=== PATIENT | female | born 1940 | race Caucasian/White ===

== ENCOUNTER 2024-09-27 09:00 | Outpatient (CLI) | payer OTHER, SELFPAY ==
--- NOTE | ~2024-09-27 | US_ITS ---
EXAMINATION: US arterial ankle brachial ind DATE: 09/27/2024 10:27 INDICATION: Atherosclerosis of [place] arteries. TECHNIQUE: Segmental pressures and plethysmographic and Doppler waveforms of the brachial and lower e xtremity arteries were obtained. COMPARISON: None. FINDINGS: Right and left brachial artery pressures of 138 mm Hg and 128 mm Hg, respectively, are concordant (no rmal difference <= 30 mmHg). The right ankle-brachial index (ARIANE) is 1.15 (normal >= 0.9-1.0). The right great toe-brachial index (TBI) is 0.70 (normal >= 0.65). Arterial Doppler waveforms are monophasic in dorsalis pedis and of po or amplitude in posterior tibial artery. The left ARIANE could not be measured due to inability to cuff occlude the arteries. The left TBI is 0.4 0. Arterial Doppler waveforms are monophasic at the ankle. IMPRESSION: 1. Decreased left TBI and nondiagnostic left ARIANE, consistent with left-sided arterial occlusive disea se. 2. No significant right-sided arterial occlusive disease. Reviewed, dictated and finalized at location A. [employer] IMPRESSION: 1. Decreased left TBI and nondiagnostic left ARIANE, consistent with left-sided ar terial occlusive disease. 2. No significant right-sided arterial occlusive disease.
== END 2024-09-27 09:01 | disposition home or self-care (01) ==
PROVIDERS: PCP Internal Medicine
DX: I70.211 Atherosclerosis of native arteries of extremities with intermittent claudication, right leg (principal)
CPT/HCPCS: 93922

== ENCOUNTER 2025-01-21 10:50 | Outpatient (CLI) | payer OTHER, SELFPAY ==
--- NOTE | ~2025-01-21 | US_ITS ---
EXAMINATION: US carotid duplex BI DATE: 01/21/2025 11:47 INDICATION: Carotid artery stenosis post prior right carotid endarterectomy TECHNIQUE: Grayscale, color Doppler, and pulsed Doppler images of the cervical carotid arteries were obtained. The degree of vessel stenosis is placed in one of the following categories: normal, <50%, 5 0-69%, >=70% but less than near-occlusion, near-occlusion, or total occlusion. Note that percent sten osis relative to normal distal artery lumen diameter is indirectly measured from velocity measurement s as described by Yandel, et al. Radiology 2003; 229:340-346. COMPARISON: None. FINDINGS: RIGHT: The right common carotid artery (CCA) peak systolic velocity (PSV) is 54 cm/s. The right internal car otid artery (ICA) PSV is 75 cm/s. The right ICA end-diastolic velocity (EDV) is 18 cm/s. The right IC A/CCA PSV ratio is 1.4. Grayscale and color Doppler images yield an estimate of <50% diameter reducti on from plaque in the ICA. The external carotid artery (ECA) PSV is 117 cm/s. There is antegrade flow in the right vertebral artery. LEFT: The left CCA PSV is 42 cm/s. The left ICA PSV is 88 cm/s. The left ICA EDV is 15 cm/s. The left ICA/C CA PSV ratio is 2.1. Grayscale and color Doppler images yield an estimate of <50% diameter reduction from plaque in the ICA. The ECA PSV is 157 cm/s. There is antegrade flow in the left vertebral artery . IMPRESSION: 1. <50% stenosis in the right internal carotid artery. 2. <50% stenosis in the left internal carotid artery. 3. Cardiac arrhythmia is present. Correlate with EKG. Reviewed, dictated and finalized at location A.
--- OUTSIDE RECORDS SUMMARY | 2025-01-21 12:23 | XMS_ITS | Clinical Summary ---
Author Organization [facility] Address [address] [place] [address] Care Team Providers Care Marketing Traffic Coordinator Name Role Phone FinaBeverley oh Crystal HAIR Primary Care Provider [phone] Allergies Active Allergy Reactions Criticality Noted Date Comments Adhesive Rash Medium 12/28/2024 Adhesive Tape-Silicones Rash Medium 12/18/2024 Gabapentin Other (See comments) 12/18/2024 Latex Other (See comments) Reaction: SKIN IRRATATION, Lovastatin Muscle pain Medium 12/28/2024 Pitavastatin Muscle pain Medium 12/28/2024 Propoxyphene Rash,Hives,Urticaria Medium 11/29/2007 Reaction: RASH Deskiku-Fyn-Jby Reductase Inhibitors Muscle pain,Other (See comments) Medium 11/29/2007 Medications calcium carbonate-dot min D3 1,500 mg (600 mg elemental)-800 unit tablet,chewabl e Take 1 tablet by mouth daily Active carvediloL (COREG) 3.125 mg tablet Take 1 tablet (3.125 mg total) by mouth 2 (two) times a day with meals Active folic acid (FOLVITE) 400 mcg tablet Take 1 tablet (400 mcg total) by mouth daily Active warfarin (COUMADIN) 4 mg tablet Take 1 tablet (4 mg total) by mouth 4 (four) times a week Mon, , Tue, Active furosemide (LASIX) 40 mg tablet Take 1 tablet (40 mg total) by mouth daily Active pregabalin (LYRICA) 150 mg capsule Take 1 capsule (150 mg total) by mouth 2 (two) times a day Active levothyroxine (SYNTHROID) 100 mcg tablet Take 1 tablet (100 mcg total) by mouth daily before breakfast Active oxyBUTYnin XL (DITROPAN-XL) 10 mg 24 hr tablet Take 1 tablet (10 mg total) by mouth daily Active Trelegy Ellipta 100-62.5-25 mcg inhaler INHALE 1 PUFF EVERY DAY AT THE SAME TIME EACH DAY 07/19/20 24 Active eoecbhkq79-pdw b-Yumttdqr-xlb al 27 mg iron-1.13 mg-581.92 mg capsule Take 1 tablet by mouth daily Active warfarin (COUMADIN) 5 mg tablet Take 1 tablet (5 mg total) by mouth 3 (three) times a week Tuesday, Tuesday, tuesday Active magnesium glycinate 100 mg tablet Take 300 mg by mouth 2 (two) times a day 12/04/19 25 Active omeprazole (PriLOSEC) 40 mg capsule Take 1 capsule (40 mg total) by mouth daily 02/23/20 24 Active evolocumab (Repatha SureClick) 140 mg/mL pen injector Inject 1 mL (140 mg total) under the skin every 14 (fourteen) days 6 mL 3 12/28/19 25 Active aspirin 81 mg enteric coated tablet Take 1 tablet (81 mg total) by mouth daily 90 tablet 3 12/30/19 25 026 Active evolocumab (Repatha SureClick) 140 mg/mL pen injector INJECT 140 MG SUBCUTANEOUSLY EVERY 2 WEEKS 09/27/20 22 025 Discontin ued(Reord er) Active Problems Problem Noted Date Diagnosed Date Atherosclerosis of nez perce ar teries of extremities with intermittent claudication, bilateral legs 12/10/2024 Severe obesity 07/24/2024 Actinic keratosis 07/28/2017 Baldness 07/28/2017 Encounters Date Type Department Care Team Description 01/08/2025 Documentation [facility] Medical [facility] Cardiology [address] [place] [address] Dominique Angela MA 12/31/2024 Telephone [facility] Medical [facility] Cardiology [address] [place] [address] Howard Gastelum MD 12/28/2024 10:00 AM CDT - 12/28/2024 12:00 PM CDT Surgery [facility] Cardiac Catheterization Lab [address] [place] [address] Howard Gastelum MD DRYING SUPERVISOR ATHERECTOMY LITHOTRIPSY ILIAC-FEM/POP ARTERY [id number] 12/28/2024 7:23 AM CDT - 12/28/2024 4:49 PM CDT Hospital Encounter [facility] Cardiac Catheterization Lab [address] [place] [address] Howard Gastelum MD Atherosclerosis of nez perce arteries of extremities with intermittent claudication, bilateral legs Discharge Disposition: Discharge to home or self care 12/28/2024 Orders Only [facility] Cardiology [address] [facility] [address] [place] [phone] Howard Gastelum MD Atherosclerosis of nez perce arteries of extremities with rest pain, left leg (HCC) (Primary Dx) 12/27/2024 Documentation [facility] Cardiology [address] [place] [address] [address] [place] [phone] Dominique Angela MA 12/26/2024 Anticoagulation Visit [address] [place] [phone] Beverley Castillo RN 12/19/[address] [place] [phone] Howard Gastelum MD 12/10/2024 10:[address] ADMINISTRATOR Office Visit [place] [address] [place] [phone] Radha Tolbert NP PAD (peripheral artery disease) 12/10/[address] [place] [phone] Howard Gastelum MD peripheral angiogram from Last 3 Months Surgical History Surgery Date Site/Laterality Comments CORONARY ARTERY BYPASS GRAFT HYSTERECTOMY TONSILLECTOMY CHOLECYSTECTOMY CARDIAC CATHETERIZATION 12/28/2024 Bilateral Procedure: ANGIOGRAPHY - BILATERAL EXTREMITY S&I [id number]; Surgeon: Howard Gastelum MD; Location: CARDIAC UTILITY TRACTOR OPERATOR; Service: Cardiovascular; Laterality: Bilateral; Medical devices from this surgery are in the Medical Devices section. CARDIAC CATHETERIZATION 12/28/2024 N/A Procedure: DRYING SUPERVISOR ATHERECTOMY LITHOTRIPSY ILIAC-FEM/POP ARTERY [id number]; Surgeon: Howard Gastelum MD; Location: CARDIAC UTILITY TRACTOR OPERATOR; Service: Cardiovascular; Laterality: N/A; Medical devices from this surgery are in the Medical Devices section. CARDIAC CATHETERIZATION 12/28/2024 N/A Procedure: ULTRASOUND GUIDANCE FOR VASCULAR ACCESS S&I [id number]; Surgeon: Howard Gastelum MD; Location: CARDIAC UTILITY TRACTOR OPERATOR; Service: Cardiovascular; Laterality: N/A; Medical devices from this surgery are in the Medical Devices section. Medical History Medical History Date Comments Atrial fibrillation (HCC) Shortness of breath Edema Thyroid disease Hypertension Diabetes mellitus (HCC) Coronary artery disease Cancer (HCC) Atherosclerosis of nez perce ar teries of extremities with intermittent claudication, bilateral legs Hypothyroidism Family History Medical History Relation Name Comments No Known Problems Father Heart disease Mother Relation Name Status Comments Father Mother Social History Tobacco Use Types Packs/Day Years Used Date Smoking Tobacco: Never Smokeless Tobacco: Never Tobacco Cessation:Counseling Given: Not Answered AUDIT-C Answer Date Recorded Q1: How often do you have a drink containing alcohol? Never 12/28/2024 Q2: How many drinks containi ng alcohol do you have on a typical day when you are drinking? Patient does not drink Q3: How often do you have si x or more drinks on one occasion? Never 12/28/2024 Personal Safety Answer Date Recorded Have you ever been in or are you currently in a harmful physical or emotional relationship or is someone making you feel afraid or unsafe? Denies 12/28/2024 Comments No Sex and Gender Information Value Date Recorded Sex Assigned at Not on file Legal Sex Female 2:[address]MINISTRATOR Gender Identity Not on file Sexual Orientation Not on file Obstetrics History Last Filed Vital Signs Vital Sign Reading Time Taken Comments Blood Pressure 106/55 12/28/2024 4:20 PM CDT Pulse 65 12/28/2024 4:30 PM CDT Temperature 36.8 C (98.2 F) 12/28/2024 7:34 AM CDT Respiratory Rate 17 12/28/2024 7:34 AM CDT Oxygen Saturation 96% 12/28/2024 4:30 PM CDT Inhaled Oxygen Concentration - - Weight 102.5 kg (226 lb) 12/28/2024 7:34 AM CDT Height 167.6 cm (5' 6 ) 12/28/2024 7:34 AM CDT Body Mass Index 36.48 12/28/2024 7:34 AM CDT Plan of Treatment Health Maintenance Due Date Last Done Comments Depression Screening 1940 DTaP/Tdap/Td Vaccine (1 - Tdap) 1949 Hepatitis B Screening 1956 Zoster Vaccine (1 of 2) 1988 Well Visit 65+ 2003 Covid-19 Vaccine (6 - 2023-2 5 season) 2024 09/12/2023, 07/13/2022, 09/29/2021, Additional history exists Fall Risk Assessment 12/28/2025 12/28/2024 Pneumococcal vaccine 65+ Completed 06/07/2023 Influenza Vaccine Completed 07/16/2024, , 07/08/2022, Additional history exists Medical Devices Implanted Type Area Front End Assistant Device Identifier Shelf Expiration Date Model / Serial / Lot [employer] System Closure Repair Femoral Artery Suture Mediated Perclose Prostyle 08338-99 - [id number] Implanted:Qty: 1 on 12/28/2024 by Howard Gastelum MD at [facility] Other - see comments [employer] 11/09/2026 [id number] / / [id number] Description:SMCD Procedures Procedure Name Priority Date/Time Associated Diagnosis Comments POCT GLUCOSE DEVICE Routine 12/28/2024 1 2:43 PM CDT VASCULAR ACCESS US GUIDANCE Routine 12/28/2024 12:08 PM CDT Atherosclerosis of nez perce arteries of extremities with intermittent claudication, bilateral legs DRYING SUPERVISOR ATHERECTOMY LITHOTRIPSY ILIAC-FEM/POP ARTERY [id number] Routine 12/28/2024 12:08 PM CDT Atherosclerosis of nez perce arteries of extremities with intermittent claudication, bilateral legs PERIPHERAL RUN OFF CATH Routine 12/28/2024 12:08 PM CDT Atherosclerosis of nez perce arteries of extremities with intermittent claudication, bilateral legs POCT ACTIVATED CLOTTING TIME, HIGH RANGE Routine 12/28/2024 12:03 PM CDT POCT GLUCOSE DEVICE Routine 12/28/2024 1 1:35 AM CDT POCT ACTIVATED CLOTTING TIME, HIGH RANGE Routine 12/28/2024 11:32 AM CDT PROTIME-INR STAT 12/28/2024 10:49 AM CDT POCT ACTIVATED CLOTTING TIME, HIGH RANGE Routine 12/28/2024 10:43 AM CDT MODERATE SEDATION SAME MD DEL RIO ADDL 15 MIN [id number] 12/28/2024 9:27 AM CDT Atherosclerosis of nez perce arteries of extremities with intermittent claudication, bilateral legs MODERATE SEDATION 12/28/2024 9:2 7 AM CDT Atherosclerosis of nez perce arteries of extremities with intermittent claudication, bilateral legs INTRAVASCULAR ULTRASOUND - NON-CORONARY - 1ST VESSEL 12/28/2024 9:27 AM CDT Atherosclerosis of nez perce arteries of extremities with intermittent claudication, bilateral legs ANGIOGRAPHY SELECTIVE - EACH ADDITIONAL VESSEL 12/28/2024 9:27 AM CDT Atherosclerosis of nez perce arteries of extremities with intermittent claudication, bilateral legs EGFR Routine 12/28/2024 7:40 AM CDT DIFFERENTIAL AUTO Routine 12/28/2024 7:4 0 AM CDT COMPREHENSIVE METABOLIC PANEL Routine 12/28/2024 7:40 AM CDT CBC WITH AUTO DIFFERENTIAL Routine 12/28/2024 7:40 AM CDT POCT GLUCOSE DEVICE Routine 12/28/2024 7 :35 AM CDT from Last 3 Months Results * POCT glucose (12/28/2024 12:43 PM CDT) [facility] Glucose, POC 124 70 - 199 mg/dL POC Performer [id number] BUBBA BACK Blood 12/28/2024 12:4 3 PM CDT 12/28/2024 12:43 PM CDT us Howard Gastelum MD LAB POCT ORDERABLES - DEVICE Fin al Result BUBBA [address] Department [place] [address] * PERIPHERAL RUN OFF CATH, DRYING SUPERVISOR ATHERECTOMY LITHOTRIPSY ILIAC-FEM/POP ARTERY C9766, VASCULAR ACCESS USGUIDANCE (12/28/2024 12:08 PM CDT) Anatomical Region Laterality Modality X-Ray Angiograph y Narrative 12/28/2024 12:53 PM CDT CARDIAC CATHETERIZATION REPORT Chela Dean IP ENCOUNTER: [id number] Date of Procedure: 12/28/2024 BIRTHDATE: 1940 CATH LAB NURSE: Howard Gastelum MD REFERRING PHYSICIAN: Dr. Harden PREPROCEDURE DIAGNOSES: Critical limb threatening ischemia Bess 4 PROCEDURES PERFORMED: Moderate sedation that started at 0947 and ended at 1208 using 2mg of Versed and 125mcg of fentanyl. The registered nurse was Huey Ernandez. Abdominal aortogram and bilateral lower extremity angiogram Selective angiogram of the left external iliac artery and left popliteal artery. Intravascular ultrasound Shockwave IVL Percutaneous transluminal angioplasty with drug coated balloon. FINDINGS: Distal abdominal aorta is free of aneurysm. Left leg Common iliac and external iliac are free of angiographic high-grade stenosis. Internal iliac artery has severe ostial disease that is estimated to be 70%. Common femoral artery is free of angiographic disease. Profundus has diffuse 20-30% stenosis The entire SFA is severely diseased with 50% stenosis at its ostium, 70-90% stenosis in its proximal body, 90-99% stenosis in its mid to distal body The popliteal artery has diffuse 20-30% stenosis The anterior tibial artery has a high takeoff and the vessel is only runoff vessel and is diffusely disease in its entirety The peroneal artery is occluded in its proximal body. Single-vessel runoff involving the anterior tibial artery with no reconstitution at the ankle the peroneal nor the posterior tibial artery. Right leg Common iliac and external iliac are free of angiographic high-grade stenosis. Internal iliac artery is severely diseased The entire SFA is occluded and the profunda his provides significant amount of collaterals to this territory The SFA reconstitutes at the adductor canal. Single-vessel runoff involving the peroneal. COMPLICATIONS: None ESTIMATED BLOOD LOSS: 10 mL PROCEDURAL DESCRIPTION: Informed consent was obtained from patient. Patient was then brought into the laborer airport maintenance and was draped and prepped in the usual manner. Moderate sedation was given and the right groin was subcutaneously injected with 1% lidocaine. The right common femoral artery was accessed using a 5Fr sheath via a micropuncture needle and modified Seldinger technique under ultrasound and fluoroscopy guidance. An IM catheter was brought into the distal aorta where an abdominal aortogram was performed. Following this, the IM catheter was used to cannulate the external iliac artery for a lower extremity angiogram. There was significant disease of the entire left SFA and at this time, the procedure was converted to an intervention. Heparin was given as per protocol. The initial sheath was upsized to a 6 x 44cm Hernando Sheath and the lesion was wired with a 0.018 Mongo wire supported by a 0.035 Navicross. The 0.018 Mongo wire was negotiated down the anterior tibial and was parked in the distal anterior tibial artery. At this time peripheral IVUS catheter was negotiated down into the distal popliteal artery and pullback was performed. The distal popliteal diameter was measured 5.5 mm and this was used as at reference diameter. The proximal SFA diameter was measured to be 5.6 mm. Intravascular ultrasound imaging also showed the disease was severely calcified with the majority of the vessel having 360 degree arc of calcium. A 5.0 x 80 mm E8 shockwave IVL was brought down to the popliteal artery level however there were technical difficulties with the device leading to an inability to deliver shockwave therapy. Despite multiple attempts to recent as well as pull air from catheter, the device would not work. We switched to a 5.0 x 60 mm M5 shockwave IVL and deliver multiple rounds of shockwave therapy from the proximal popliteal artery to the proximal SFA with significant angiographic improvement. At this time, 3 overlapping 6.0 x 150 mm, 6.0 x 150 mm, 6.0 x 100 mm [place] DCB was used to treat the entire SFA and proximal popliteal artery. At this time, a 0.018 Navicross was delivered to the distal popliteal artery where single-vessel runoff was confirmed to be unchanged from the beginning of the procedure. The Navicross was then removed and repeat angiogram of the entire leg was performed. There was residual 50% stenosis in the distal popliteal that was left untreated. There is residual diffuse 10-20% stenosis in the treated portions of the proximal SFA to proximal popliteal artery. There were no flow-limiting dissections and decision was made that this is an acceptable result at this time. CONCLUSIONS Successful IVUS guided and shockwave IVL assisted DRYING SUPERVISOR of the left proximal SFA to the proximal popliteal artery with overlapping 6.0 x 150 mm, 6.0 x 150 mm, 6.0 x 100 mm [place] DCB with good angiographic results. PLAN Continue aspirin 81 mg p.o. daily She can resume warfarin tonight Repeat ARIANE in 1 month The angiogram of her right leg was reviewed in its entirety, and unfortunately there does not appear to be a good endovascular option without significant risk. At this time decision has been made to continue medical therapy and continue ambulation program. If necessary, 2nd opinion will be sought after with vascular surgery. us Howard Gastelum MD CV CARDIAC CATH PROCEDURES Final Result * (ABNORMAL) POC Activated Clotting Time, High Range (12/28/2024 12:03 PM CDT) ACT 277(H) 87 - 138 sec POC Performer [id number] BUBBA Blood 12/28/2024 12:0 3 PM CDT 12/28/2024 12:03 PM CDT us Howard Gastelum MD LAB BLOOD ORDERABLES Final Resul t BUBBA [address] [address] Department of Laboratories [place], [place] [id number] * POCT glucose (12/28/2024 11:35 AM CDT) Pathologist [facility] [place] Glucose, POC 127 70 - 199 mg/dL POC Performer [id number] BUBBA Blood 12/28/2024 11:3 5 AM CDT 12/28/2024 11:35 AM CDT us Howard Gastelum MD LAB POCT ORDERABLES - DEVICE Fin al Result Performing Organization Address City/[facility]/ZIP Co de Phone Number BUBBA BACK [address] [facility] [place] [address] * (ABNORMAL) POC Activated Clotting Time, High Range (12/28/2024 11:32 AM CDT) ACT 239(H) 87 - 138 sec POC Performer [id number] BUBBA Blood 12/28/2024 11:3 2 AM CDT 12/28/2024 11:32 AM CDT Howard Gastelum MD LAB BLOOD ORDERABLES Final Resul t Performing Organization Address [facility] de Phone Number BUBBA [address] [facility] [place] [address] * Protime-INR (12/28/2024 10:49 AM CDT) PT 12.6 9.7 - 13.0 sec INR 1.16 0.90 - 1.20 [facility] Comment: Interpretive data Oral anticoagulant therapeutic ranges: Venous thromboembolism prophylaxis or treatment: 2.0-3.0 CARDIOLOGY Standard range: 2.0-3.0 High-intensity range: 2.5-3.5 Refer to indication-specific guidelines for appropriate target ranges for prosthetic heart valve replacement. Current interpretive data was last revised on 2019. Blood 12/28/2024 10:4 9 AM CDT 12/28/2024 10:52 AM CDT Howard Gastelum MD LAB BLOOD ORDERABLES Final Resul t Performing Organization Address [facility] Co de Phone Number BUBBA BACK [address] [address] Department [place] [address] * (ABNORMAL) POC Activated Clotting Time, High Range (12/28/2024 10:43 AM CDT) ACT 200(H) 87 - 138 sec POC Performer [id number] BUBBA Blood 12/28/2024 10:4 3 AM CDT 12/28/2024 10:43 AM CDT Howard Gastelum MD LAB BLOOD ORDERABLES Final Resul t Performing Organization Address City/[facility] Co de Phone Number BUBBA BACK [address] [address] Department [place] [address] * eGFR (12/28/2024 7:40 AM CDT) eGFR 61 >=60 mL/min/1. 73 m2 Comment: Interpretive Data Reference Interval Normal >/= 90 mL/min/1.73m2 Mildly decreased* 60 - 89 mL/min/1.73m2 Mildly to moderately decreased 45 - 59 mL/min/1.73m2 Moderately to severely decreased 30 - 44 mL/min/1.73m2 Severely decreased 15 - 29 mL/min/1.73m2 Kidney Failure < 15 mL/min/1.73m2 *Relative to young adult level Estimated glomerular filtration rate is determined by the 2020 CKD-EPI equation recommended by the National Kidney Foundation (A Unifying Approach to GFR Estimation: Recommendations of the NKF-ASK Task Force on Reassessing the Inclusion of Race in Diagnosing Kidney Disease, JASN 2020). The CKD-EPI equation should not be used for patients with unstable renal function and has not been validated in children and those over 70. Current interpretive data was last reviewed 2021. Blood 12/28/2024 7:40 AM CDT 12/28/2024 7:53 AM CDT Howard Gastelum MD LAB BLOOD ORDERABLES Final Resul t Performing Organization Address City/[facility]/ZIP Co de Phone Number BUBBA BACK [address] [place] [address] * Differential, auto (12/28/2024 7:40 AM CDT) Neutrophil abs 4.5 1.5 - 6.5 K/cumm Imm gran abs 0.0 0.0 - 0.1 K/cumm [facility] Lymphocyte abs 2.5 0.8 - 3.3 K/cumm [facility] Monocyte abs 0.6 0.2 - 0.8 K/cumm [facility] Eosinophil abs 0.2 0.0 - 0.5 K/cumm [facility] Basophil abs 0.0 0.0 - 0.1 K/cumm [facility] Neutrophil pct 57.3 % [facility] Comment: Interpretive Data Percent cell count reference ranges are not reported, since discordance with absolute values may lead to misinterpretation of CBC data. Current Interpretive Data was last revised on 2018. Imm gran pct 0.4 % [facility] Comment: Interpretive Data Percent cell count reference ranges are not reported, since discordance with absolute values may lead to misinterpretation of CBC data. Current Interpretive Data was last revised on 2018. Lymphocyte pct 31.4 % [facility] Comment: Interpretive Data Percent cell count reference ranges are not reported, since discordance with absolute values may lead to misinterpretation of CBC data. Current Interpretive Data was last revised on 2018. Monocyte pct 7.7 % [facility] Comment: Interpretive Data Percent cell count reference ranges are not reported, since discordance with absolute values may lead to misinterpretation of CBC data. Current Interpretive Data was last revised on 2018. Eosinophil pct 2.7 % [facility] Comment: Interpretive Data Percent cell count reference ranges are not reported, since discordance with absolute values may lead to misinterpretation of CBC data. Current Interpretive Data was last revised on 2018. Basophil pct 0.5 % [facility] Comment: Interpretive Data Percent cell count reference ranges are not reported, since discordance with absolute values may lead to misinterpretation of CBC data. Current Interpretive Data was last revised on 2018. Blood 12/28/2024 7:40 AM CDT 12/28/2024 7:53 AM CDT us Howard Gastelum MD LAB BLOOD ORDERABLES Final Resul t BUBBA BACK [address] Department [place] [address] * (ABNORMAL) CBC with auto differential (12/28/2024 7:40 AM CDT) WBC 7.9 3.8 - 9.9 K/cumm Hgb 15.3 11.9 - 15.5 g/dL [facility] Hct 47.6(H) 35.6 - 45.5 % [facility] Plt 226 150 - 400 K/cumm [facility] MPV 11.6 9.1 - 12.3 fL [facility] RBC 5.07 3.90 - 5.20 M/cumm [facility] MCV 93.9 81.3 - 96.4 fL [facility] MCH 30.2 27.1 - 33.3 pg [facility] MCHC 32.1(L) 32.3 - 35.7 g/dL [facility] RDW CV 14.6 11.1 - 14.9 % [facility] RDW SD 50.7(H) 35.7 - 48.1 fL [facility] NRBC abs 0.00 0.00 - 0.01 K/cumm [facility] Blood 12/28/2024 7:40 AM CDT 12/28/2024 7:53 AM CDT us Howard Gastelum MD LAB BLOOD ORDERABLES Final Resul t [facility] [address] Department [place] [address] * Comprehensive metabolic panel (12/28/2024 7:40 AM CDT) Pathologist [facility] [place] Sodium 145 135 - 145 mmol/L Potassium, pl 4.1 3.3 - 4.9 mmol/L [facility] Chloride 101 97 - 110 mmol/L [facility] CO2 31 22 - 32 mmol/L [facility] Anion gap 13 2 - 15 mmol/L [facility] BUN 24 6 - 25 mg/dL [facility] Creatinine 0.91 0.60 - 1.10 mg/dL [facility] Glucose 114 70 - 199 mg/dL [facility] Comment: Interpretive Data Fasting glucose >/= 126 mg/dl is diagnostic for diabetes. Fasting is defined as no caloric intake for at least 8 hours. Fasting glucose between 100 mg/dl to 125 mg/dl is diagnostic of prediabetes. In a patient with classic symptoms of hyperglycemia or hyperglycemic crisis, a random glucose >/= 200 mg/dl is diagnostic for diabetes. In the absence of unequivocal hyperglycemia, results should be confirmed by repeat testing. The classification and Diagnosis of Diabetes Diabetes Care 202; 46: S19-S40. Current interpretive data was last revised 2022. Calcium 9.8 8.5 - 10.3 mg/dL [facility] Bilirubin, total 0.5 0.1 - 1.2 mg/dL [facility] Protein, pl 7.4 6.5 - 8.5 g/dL CERNER CH Albumin 4.1 3.5 - 5.0 g/dL CERNER CH Alk phos 84 40 - 130 Units/L CERNER [facility] ALT 23 7 - 45 Units/L CERN[facility] CH AST 31 10 - 45 Units/L CERNER CH Blood 12/28/2024 7:40 AM CDT 12/28/2024 7:53 AM CDT Howard Gastelum MD LAB BLOOD ORDERABLES Final Resul t LAURASANYA NAZANIN [address] Department [place] [employer] [address] * POCT glucose (12/28/2024 7:35 AM CDT) [facility] Signature Glucose, POC 110 70 - 199 mg/dL POC Performer [id number] CERNER CH Blood 12/28/2024 7:35 AM CDT 12/28/2024 7:35 AM CDT Howard Gastelum MD LAB POCT ORDERABLES - DEVICE Fin al Result Performing Organization Address City/[facility]/ZIP Co de Phone Number BUBBA BACK [address] Department [place] [employer] [place] [address] from Last 3 Months Insurance [facility] Care Teams Marketing Traffic Coordinator Relationship Specialty Start Date End Date Beverley Harden DO PCP - General Internal Medicine 07/24/24
--- OUTSIDE RECORDS SUMMARY | 2025-01-21 12:23 | XMS_ITS | Referral Summary ---
Author Organization [facility] Address [address] [place] [address] Care Team Providers Care Vocational Education Professional Name Role Phone Fina, Beverley Crystal HAIR Primary Care Provider [phone] Encounters Date Type Department Care Team Description 01/08/2025 Documentation [facility] Cardiology [address] [facility] [address] [place] [phone] Dominique Angela MA 12/31/2024 Telephone [facility] Cardiology [address] [facility] [address] [place] [phone] Howard Gastelum MD 12/28/2024 Orders Only [facility] Cardiology [address] [facility] [address] [place] [phone] Howard Gastelum MD Atherosclerosis of [place] arteries of extremities with rest pain, left leg (HCC) (Primary Dx) 12/28/2024 10:00 AM CDT - 12/28/2024 12:00 PM CDT Surgery [facility] Cardiac Catheterization Lab [address] [place] [id number] Howard Gastelum MD DEPUTY [place] ATHERECTOMY LITHOTRIPSY ILIAC-FEM/POP ARTERY [id number] 12/28/2024 7:23 AM CDT - 12/28/2024 4:49 PM CDT Hospital Encounter [facility] Cardiac Catheterization Lab [address] [place] [id number] Howard Gastelum MD Atherosclerosis of [place] arteries of extremities with intermittent claudication, bilateral legs Discharge Disposition: Discharge to home or self care 12/27/2024 Documentation [facility] Cardiology [address] [place] [address] [place] [phone] Dominique Angela MA 12/26/2024 Anticoagulation Visit [facility] Cardiology [address] [place] [address] [place] [phone] Beverley Castillo RN 12/19/2024 Telephone [facility] Cardiology [address] [place] [address] [place] [phone] Howard Gastelum MD 12/10/2024 Telephone [facility] Cardiology [address] [place] [address] [place] [phone] Howard Gastelum MD peripheral angiogram 12/10/2024 10:30 AM HAND FRAME SURGICAL ELASTIC KNITTER Office Visit [facility] Cardiology [address] [place] [address] [place] [phone] Radha Tolbert NP PAD (peripheral artery disease) from Last 3 Months Allergies Active Allergy Reactions Criticality Noted Date Comments Adhesive Rash Medium 12/28/2024 Adhesive Tape-Silicones Rash Medium 12/18/2024 Gabapentin Other (See comments) 12/18/2024 Latex Other (See comments) Reaction: SKIN IRRATATION, Lovastatin Muscle pain Medium 12/28/2024 Pitavastatin Muscle pain Medium 12/28/2024 Propoxyphene Rash,Hives,Urticaria Medium 11/29/2007 Reaction: RASH Ojzepcz-Yml-Bkd Reductase Inhibitors Muscle pain,Other (See comments) Medium [...] mouth 4 (four) times a week Mon, Tu, Wed, Th Active furosemide (LASIX) 40 mg tablet Take [...] SAME TIME EACH DAY 07/19/20 24 Active jeqneqig29-nwj y-Ttcbmgzl-brr al 27 mg iron-1.13 mg-581.92 mg capsule [...] Problem Noted Date Diagnosed Date Atherosclerosis of [place] ar teries of extremities with intermittent claudication, bilateral legs 12/10/2024 Severe obesity 07/24/2024 Actinic keratosis 07/28/2017 Baldness 07/28/2017 Social History Tobacco Use Types Packs/Day Years Used Date Smoking Tobacco: Never Smokeless Tobacco: Never Tobacco Cessation:Counseling Given: Not Answered AUDIT-C Answer Date Recorded Q1: How often do you have a drink containing alcohol? Never 12/28/2024 Q2: How many drinks containi ng alcohol do you have on a typical day when you are drinking? Patient does not drink 03/21/202 5 Q3: How often do you have si [...] on file Legal Sex Female 2:07 AM HAND FRAME SURGICAL ELASTIC KNITTER Gender Identity Not on file Sexual Orientation Not on file Last Filed Vital Signs Vital Sign Reading [...] 12/28/2024 7:34 AM CDT Plan of Treatment Not on file Medical Devices Implanted Type Area Casket Upholsterer Device Identifier Shelf Expiration Date Model / Serial / Lot [employer] System Closure Repair Femoral Artery Suture Mediated Perclose Prostyle 57267-48 - [id number] Implanted:Qty: 1 on 12/28/2024 by Howard Gastelum MD at [facility] Other - see comments [employer] 11/09/2026 [id number] / / [id number] Description:SMCD Procedures Procedure Name Priority Date/Time Associated Diagnosis Comments POCT GLUCOSE DEVICE Routine 12/28/2024 1 2:43 PM CDT VASCULAR ACCESS US GUIDANCE Routine 12/28/2024 12:08 PM CDT Atherosclerosis of [place] arteries of extremities with intermittent claudication, bilateral legs DEPUTY [place]AL ATHERECTOMY LITHOTRIPSY ILIAC-FEM/POP ARTERY [id number] Routine 12/28/2024 12:08 PM CDT Atherosclerosis of [place] arteries of extremities with intermittent claudication, bilateral legs PERIPHERAL RUN OFF CATH Routine 12/28/2024 12:08 PM CDT Atherosclerosis of [place] arteries of extremities with intermittent claudication, bilateral [...] SAME MD DEL RIO ADDL 15 MIN [id number] 12/28/2024 9:27 AM CDT Atherosclerosis of [place] arteries of extremities with intermittent claudication, bilateral legs MODERATE SEDATION 12/28/2024 9:2 7 AM CDT Atherosclerosis of [place] arteries of extremities with intermittent claudication, bilateral legs INTRAVASCULAR ULTRASOUND - NON-CORONARY - 1ST VESSEL 12/28/2024 9:27 AM CDT Atherosclerosis of [place] arteries of extremities with intermittent claudication, bilateral legs ANGIOGRAPHY SELECTIVE - EACH ADDITIONAL VESSEL 12/28/2024 9:27 AM CDT Atherosclerosis of [place] arteries of extremities with intermittent claudication, bilateral legs EGFR Routine 12/28/2024 7:40 AM CDT DIFFERENTIAL AUTO Routine 12/28/2024 7:4 0 AM CDT COMPREHENSIVE METABOLIC PANEL Routine 12/28/2024 7:40 AM CDT CBC WITH AUTO DIFFERENTIAL Routine 12/28/2024 7:40 AM CDT POCT GLUCOSE DEVICE Routine 12/28/2024 7 :35 AM CDT from Last 3 Months Results * POCT glucose (12/28/2024 12:43 PM CDT) [facility] Glucose, POC 124 70 - 199 mg/dL POC Performer [id number] BUBBA NAZANIN Blood 12/28/2024 12:4 3 PM CDT 12/28/2024 12:43 PM CDT us Howard Gastelum MD LAB POCT ORDERABLES - DEVICE Fin al Result BUBBA [address] [facility] Department [place] [address] * PERIPHERAL RUN OFF CATH, DEPUTY [place] MAR[place]AL ATHERECTOMY LITHOTRIPSY ILIAC-FEM/POP ARTERY [id number], VASCULAR ACCESS USGUIDANCE (12/28/2024 12:08 PM CDT) Anatomical Region Laterality Modality X-Ray Angiograph y Narrative 12/28/2024 12:53 PM CDT CARDIAC CATHETERIZATION REPORT Chela Dean IP ENCOUNTER: [id number] Date of Procedure: 12/28/2024 BIRTHDATE: 1940 POST MANAGER: Howard Gastelum MD REFERRING PHYSICIAN: Dr. Harden PREPROCEDURE DIAGNOSES: Critical limb threatening ischemia [place] 4 PROCEDURES PERFORMED: Moderate sedation that started [...] patient. Patient was then brought into the section laborer and was draped and prepped in the [...] x 150 mm, 6.0 x 100 mm [place] DCB was used to treat the entire [...] Successful IVUS guided and shockwave IVL assisted DEPUTY [place] of the left proximal SFA to the proximal popliteal artery with overlapping 6.0 x 150 mm, 6.0 x 150 mm, 6.0 x 100 mm [place] DCB with good angiographic results. PLAN Continue [...] Time, High Range (12/28/2024 12:03 PM CDT) Pathologist [facility] ACT 277(H) 87 - 138 sec POC Performer [id number] BUBBA BACK Blood 12/28/2024 12:0 3 PM CDT 12/28/2024 12:03 PM CDT us Howard Gastelum MD LAB BLOOD ORDERABLES Final Resul t BUBBA BACK [address] Department [place] [address] * POCT glucose (12/28/2024 11:35 AM CDT) [facility] Glucose, POC 127 70 - 199 mg/dL POC Performer [id number] BUBBA Blood 12/28/2024 11:3 5 AM CDT 12/28/2024 11:35 AM CDT Result Fercho Gastelum MD LAB POCT ORDERABLES - DEVICE Fin al Result Performing Organization Address [facility] Co de Phone Number [facility] [address] [facility] [employer] [place] [address] * (ABNORMAL) POC Activated Clotting Time, High Range (12/28/2024 11:32 AM CDT) ACT 239(H) 87 - 138 sec POC Performer [id number] [facility] Blood 12/28/2024 11:3 2 AM CDT 12/28/2024 11:32 AM CDT Result Fercho Gastelum MD LAB BLOOD ORDERABLES Final Resul t Performing Organization Address [facility] de Phone Number [facility] [address] [place] [address] * Protime-INR (12/28/2024 10:49 AM CDT) PT 12.6 9.7 - 13.0 sec INR 1.16 0.90 - 1.20 [facility] Comment: Interpretive data Oral anticoagulant therapeutic ranges: Venous thromboembolism prophylaxis or treatment: 2.0-3.0 CARDIOLOGY Standard range: 2.0-3.0 High-intensity range: 2.5-3.5 Refer to indication-specific guidelines for appropriate target ranges for prosthetic heart valve replacement. Current interpretive data was last revised on 2019. Blood 12/28/2024 10:4 9 AM CDT 12/28/2024 10:52 AM CDT Result Fercho Gastelum MD LAB BLOOD ORDERABLES Final Resul t Performing Organization Address [facility] Co de Phone Number [facility] [address] [address] [facility] [place] [address] * (ABNORMAL) POC Activated Clotting Time, High Range (12/28/2024 10:43 AM CDT) ACT 200(H) 87 - 138 sec POC Performer [id number] BUBBA Blood 12/28/2024 10:4 3 AM CDT 12/28/2024 10:43 AM CDT us Howard Gastelum MD LAB BLOOD ORDERABLES Final Resul t Performing Organization Address [facility] de Phone Number BUBBA [address] [employer] [place], [place] [phone] * eGFR (12/28/2024 7:40 AM CDT) eGFR [...] ORDERABLES Final Resul t Performing Organization Address [facility] Co de Phone Number BUBBA [address] [address] [place] [address] * Differential, auto (12/28/2024 7:40 AM CDT) Neutrophil abs 4.5 1.5 - 6.5 K/cumm Imm gran abs 0.0 0.0 - 0.1 K/cumm CERNER Lymphocyte abs 2.5 0.8 - 3.3 K/cumm CERNER Monocyte abs 0.6 0.2 - 0.8 K/cumm CERNER Eosinophil abs 0.2 0.0 - 0.5 K/cumm CERNER Basophil abs 0.0 0.0 - 0.1 K/cumm [facility] Neutrophil pct 57.3 % CERNER Comment: Interpretive Data Percent cell count reference ranges are not reported, since discordance with absolute values may lead to misinterpretation of CBC data. Current Interpretive Data was last revised on 2018. Imm gran pct 0.4 % CERNER Comment: Interpretive Data Percent cell count reference ranges are not reported, since discordance with absolute values may lead to misinterpretation of CBC data. Current Interpretive Data was last revised on 2018. Lymphocyte pct 31.4 % [facility] Comment: Interpretive Data Percent cell count reference ranges are not reported, since discordance with absolute values may lead to misinterpretation of CBC data. Current Interpretive Data was last revised on 2018. Monocyte pct 7.7 % [facility] Comment: Interpretive Data Percent cell count reference ranges are not reported, since discordance with absolute values may lead to misinterpretation of CBC data. Current Interpretive Data was last revised on 2018. Eosinophil pct 2.7 % [facility] Comment: Interpretive Data Percent cell count reference ranges are not reported, since discordance with absolute values may lead to misinterpretation of CBC data. Current Interpretive Data was last revised on 2018. Basophil pct 0.5 % [facility] Comment: Interpretive Data Percent cell count reference ranges are not reported, since discordance with absolute values may lead to misinterpretation of CBC data. Current Interpretive Data was last revised on 2018. Blood 12/28/2024 7:40 AM CDT 12/28/2024 7:53 AM CDT us Howard Gastelum MD LAB BLOOD ORDERABLES Final Resul t BUBBA BACK [address] Department of Laboratories [place], [place] [phone] * (ABNORMAL) CBC with auto differential (12/28/2024 7:40 AM CDT) WBC 7.9 3.8 - 9.9 K/cumm Hgb 15.3 11.9 - 15.5 g/dL CERNER CH Hct 47.6(H) 35.6 - 45.5 % [facility]ERNER CH Plt 226 150 - 400 K/cumm [facility]ER CH MPV 11.6 9.1 - 12.3 fL [facility] RBC 5.07 3.90 - 5.20 M/cumm [facility] CH MCV 93.9 81.3 - 96.4 fL [facility]ER CH MCH 30.2 27.1 - 33.3 pg CERNER CH MCHC 32.1(L) 32.3 - 35.7 g/dL CERNER CH RDW CV 14.6 11.1 - 14.9 % [facility] CH RDW SD 50.7(H) 35.7 - 48.1 fL CERNER NRBC abs 0.00 0.00 - 0.01 K/cumm [facility] Blood 12/28/2024 7:40 AM CDT 12/28/2024 7:53 AM CDT us Howard Gastelum MD LAB BLOOD ORDERABLES Final Resul t Performing Organization Address [facility] Co de Phone Number BUBBA BACK [address] Department [place] [address] * Comprehensive metabolic panel (12/28/2024 7:40 AM CDT) Sodium 145 135 - 145 mmol/L Potassium, pl 4.1 3.3 - 4.9 mmol/L CERNER Chloride 101 97 - 110 mmol/L [facility]ERNER CH CO2 31 22 - 32 mmol/L [facility]ER CH Anion gap 13 2 - 15 mmol/L [facility]ER CH BUN 24 6 - 25 mg/dL [facility]ER CH Creatinine 0.91 0.60 - 1.10 mg/dL [facility]ERNER CH Glucose 114 70 - 199 mg/dL [facility]ERNER CH Comment: Interpretive Data Fasting glucose >/= 126 [...] ORDERABLES Final Resul t Performing Organization Address [facility] Co de Phone Number BUBBA BACK [address] [place] [address] * POCT glucose (12/28/2024 7:35 AM CDT) [facility] Signature Glucose, POC 110 70 - 199 mg/dL POC Performer [id number] [facility] Blood 12/28/2024 7:35 AM CDT 12/28/2024 7:35 AM CDT Howard Gastelum MD LAB POCT ORDERABLES - DEVICE Fin al Result Performing Organization Address [facility] Co de Phone Number BUBBA BACK [address] Department [place] [address] from Last 3 Months Insurance [facility] Care Teams Vocational Education Professional Relationship Specialty Start Date End Date Beverley Harden DO PCP - General Internal Medicine 07/24/24
--- OUTSIDE RECORDS SUMMARY | 2025-01-21 12:23 | XMS_ITS | CONTINUITY OF CARE DOCUMENT ---
Author Name earlamysadaf Address Unknown Organization [facility] Address [address] [place] [address] Phone [phone] Care Team Providers Care Manager Metrology Name Role Phone Darrick Kramer MD Unavailable COREY ROCHA, MIKEL Burger Unavailable MURIEL ROCHA, CARMELO Unavailable [phone] PROBLEMS Condition Status Date Provider Notes Shortness of breath (SOB) active Sergo kwan INS[employer]ANCE PROVIDERS Payer name Policy type / Coverage type [place] [employer] Other [id number] TREATMENT PLAN Date Name Complete Echo
--- OUTSIDE RECORDS SUMMARY | 2025-01-21 12:24 | XMS_ITS | Clinical Summary ---
Author Organization [facility] Address [address] [place] [address] Care Team Providers Care Baling Press Operator Name Role Phone Filippo Berry MD Unavailable [phone] Beverley Reyes RN Unavailable [phone] Anita Elder INFORMATION TECHNOLOGY DIRECTOR Unavailable [phone] Naomi Shanks DO Primary Care Provider [phone] Source Comments [facility],non-owned Affiliates and Associated Physician Practices is amultiple site organization consisting of ambulatory clinics and hospital sitesin [place], [place], [place] and [place]. This disclosure is being madepursuant to the Care Everywhere program and may not contain all information available regarding this patient. Last updated 18.[facility] Allergies Active Allergy Reactions Criticality Noted Date Comments Adhesive Sensitivity Rash Low 07/16/2011 Paper tape appears to be OK Darvon 10/12/2009 Hmg-Coa-R Inhibitors Other 12/22/2010 Lovastatin Myalgias 11/29/2007 Propoxyphene Urticaria Medium 11/29/2007 Medications * Be aware that medications may not be up to date on this document. Alwaysverify current medications with the patient. calcium-vitami n D (CALTRATE PLUS D) 600-200 MG-UNIT tablet Take 1 (one) tablet by mouth once daily Active levothyroxine (SYNTHROID) 100 MCG tablet Take 1 (one) tablet by mouth daily before breakfast Active multivitamin daily (THERAGRAN) tablet Take 1 (one) tablet by mouth daily with food Active aspirin (ASPIRIN) 81 MG chew tablet Take 1 Tab by mouth once daily 7 Active warfarin (COUMADIN) 4 MG tablet Take 5 mg by mouth once daily Active carvedilol (COREG) 6.25 MG tablet Take 0.5 (one-half) tablet by mouth 2 times daily with morning and evening meal 3 8 Active pregabalin (LYRICA) 150 MG capsule Take 1 (one) capsule by mouth 2 times daily Active folic acid 400 MCG tablet Take 1 (one) tablet by mouth once daily Active Repatha SureClick 140 MG/ML auto-injector INJECT 140 MG SUBCUTANEOUSLY EVERY 2 WEEKS 2 mL 4 Active Active Problems Problem Noted Date Diagnosed Date 3-vessel coronary artery disease 04/16/2017 Postsurgical aortocoronary bypass status 017 NSTEMI (non-ST elevated myocardial infarction) 0 04/07/2017 HTN (hypertension) 04/03/2014 Mixed hyperlipidemia 04/03/2014 Assessment & Plan (07/20/2022 2:09 PM CDT): She is on a PCSK9 inhibitor secondary to statin intolerance. Last lipids reviewed in at reasonable control. Subarachnoid hemorrhage 04/03/2014 History of DVT (deep vein thrombosis) 04/03/2014 Mitral regurgitation 04/03/2014 Uterus cancer 04/01/2014 Carotid disease, bilateral 04/01/2014 CAD (coronary artery disease) 04/01/2014 Assessment & Plan (08/18/2023 1:54 PM GAS STATION OPERATOR): Hx CABG and multiple PCI. Will continue repatha, aspirin. On AC due to hx permanent Afib. LDL above goal per last note seen in 2019. Discussed adding Zetia with patient today. She would prefer to stay on her current regimen which I think is not unreasonable given her advanced age. Encouraged diet and exercise Assessment & Plan (07/20/2022 2:10 PM CDT): On aspirin as well. Her advanced age, it would be reasonable to consider anticoagulation alone however, she denies significant bleeding episodes this had bypass as well as PCI. She is also relatively robust for an 82-year-old female. Will continue both for now. She is on a PCSK9 inhibitor. Her blood pressure is well controlled. Arrhythmia 04/01/2014 Encounter for health-related screening 1 Overview (01/07/2018): Adult Abstraction Problem List Screening Dexa Scan (Bone Density): Result: January 2011 Pap Smear: [place] [facility] FOR endometrial cancer 07/19/11 Result: 1996- normal Mammogram: Result: January 2011 normal CF Test: Result: never IMO update 01 08 2018 Atrial fibrillation 11/13/2009 Assessment & Plan (08/18/2023 1:49 PM GAS STATION OPERATOR): Permanent afib, on AC w warfarin. Rate controlled on carvedilol. No changes Assessment & Plan (07/20/2022 2:09 PM CDT): Permanent atrial fibrillation. On warfarin. Rate controlled with carvedilol. LV function normal. No symptoms. Recommend no changes at this time. DVT (deep venous thrombosis) 11/13/2009 Abdominal pain, left upper quadrant 10/26/2009 Tachycardia 10/26/2009 Overview (07/10/2015): Fall 10/11/2009 Immunizations Immunization Administration Dates Next Due [email or web address] primary monoval ent 12+ yr 0.3mL Purple cap 09/29/2021,01/23/2021,01/02/2021 Family History Medical History Relation Name Comments Twins Maternal Grandmother Diabetes Mother Heart Disease Mother Heart Failure Mother Stroke Mother Twins Mother Bleeding Disorders Sister Stroke Sister Relation Name Status Comments Maternal Grandmother Mother Sister Social History Tobacco Use Types Packs/Day Years Used Date Smoking Tobacco: Never Smokeless Tobacco: Never Tobacco Cessation:Counseling Given: Yes Alcohol Use Standard Drinks/Week Comments Yes 5 (1 standard drink = 0.6 oz pur e alcohol) occasionally PHQ-2 Answer Date Recorded PHQ2 TOTAL SCORE 0 05/29/2021 Comments No Sex and Gender Information Value Date Recorded Sex Assigned at Not on file Legal Sex Female 5:02 AM GAS STATION OPERATOR Gender Identity Not on file Sexual Orientation Not on file Last Filed Vital Signs Vital Sign Reading Time Taken Comments Blood Pressure 134/82 08/18/2023 1:36 PM GAS STATION OPERATOR Pulse 78 08/18/2023 1:36 PM GAS STATION OPERATOR Temperature 36.4 C (97.6 F) 04/04/2020 4:12 PM CDT Respiratory Rate 20 01/24/2019 11:2 4 AM CDT Oxygen Saturation 94% 08/18/2023 1:36 PM GAS STATION OPERATOR Inhaled Oxygen Concentration 40% 2017 1 :00 PM CDT Weight 104.2 kg (229 lb 12.8 oz) 08/18/2023 1:36 PM GAS STATION OPERATOR Height 171.5 cm (5' 7.5 ) 08/18/2023 1:36 PM GAS STATION OPERATOR Body Mass Index 35.46 08/18/2023 1:36 PM GAS STATION OPERATOR Plan of Treatment Health Maintenance Due Date Last Done Comments BONE DENSITY TESTING 1940 MEDICARE AWV 12 MONTHS 1940 DTAP/TDAP/TD VACCINES (1 - Tdap) 1957 PNEUMOCOCCAL VACCINE 50+ (1 of 1 - PCV) 1988 ZOSTER VACCINE (1 of 2) 1988 Respiratory Syncytial Virus (RSV) Vaccine Pt: or over 60 yrs (1 - 1-dose 75+ series) 2013 COVID-19 VACCINE ( season) 2024 07/13/2022, 09/29/2021, 01/23/2021, Additional history exists DEPRESSION SCREENING 10/10/2024 INFLUENZA VACCINE Completed 07/16/2024, , 07/11/2017, Additional history exists HEPATITIS B VACCINE Aged Out No longe r eligible based on patient's age to complete this topic HIB VACCINE Aged Out No longer eligi ble based on patient's age to complete this topic HPV VACCINE Aged Out No longer eligi ble based on patient's age to complete this topic MENINGOCOCCAL (Group B) VACCINE SHARED DECISION-MAKING Aged Out No longer eligible based on patient's age to complete this topic MENINGOCOCCAL GROUPS A/C/Y/W VACCINE Aged Out No longer eligible based on patient's age to complete this topic Medical Devices Implanted Type Area Synthetic Resin Operator Device Identifier Shelf Expiration Date Model / Serial / Lot Patch Mesh Hemshld Platnm Finesse 8 X 75 Implanted:Qty: 1 on 05/28/2013 by Fabian Valenzuela II, MD at [facility] Right: Carotid [employer] [facility] 02/07/2018 [id number] CPUT(1) / / [id number] Insurance [facility] MEDICARE Advance Directives Documents on File Type Date Recorded Patient Director Wholesale Expl anation Adv Directive/Living Will/POA 05/30/2013 12:49 PM Adv Directive/Living Will/POA 07/25/2011 8:24 AM Adv Directive/Living Will/POA 11/25/2009 12:56 PM * Full Code (Latest Code Status on File) Date Activated Date Inactivated Comments 04/07/2017 3:36 PM 04/22/2017 4:21 PM * Full Code Date Activated Date Inactivated Comments 04/06/2017 3:07 PM 04/07/2017 3:36 PM * Full Code Date Activated Date Inactivated Comments 04/06/2017 12:27 PM 04/06/2017 3:07 PM * FULL RESUSCITATION Date Activated Date Inactivated Comments 05/28/2013 8:52 AM 05/29/2013 10:18 AM * FULL RESUSCITATION Date Activated Date Inactivated Comments 07/19/2011 4:52 PM 07/22/2011 10:01 PM Care Teams Baling Press Operator Relationship Specialty Start Date End Date Naomi Shanks DO [address] [place] [address] [place] [address] PCP - General Internal Medicine 02/02/24 Filippo Berry MD [address] [place] [address] [place] [id number] Stunner Animal Cardiovascular Disease 04/06/17 Beverley Reyes, RN Diagnostic Cardiac Sonographer 04/06/17 Anita Elder MSW CO Compound Worker 04/21/17
--- OUTSIDE RECORDS SUMMARY | 2025-01-21 12:24 | XMS_ITS | Clinical Summary ---
Author Organization [facility] Address [address] [place] [address] Care Team Providers Care Wood Machinist Apprentice Name Role Phone Unavailable Primary Care Provider Unavailabl e Social History Tobacco Use Types Packs/Day Years Used Date Smoking Tobacco: Never Assessed Comments Unknown Sex and Gender Information Value Date Recorded Sex Assigned at Not on file Legal Sex Female 1:28 PM EDT Gender Identity Not on file Sexual Orientation Not on file Plan of Treatment Not on file
--- OUTSIDE RECORDS SUMMARY | 2025-01-21 12:24 | XMS_ITS | Clinical Summary ---
Author Organization [facility] Address [address] [place] [address] Phone Care Team Providers Care Handbag Parts Cutter Name Role Phone Unavailable Primary Care Provider Unavailabl e Encounters Date Type Department Care Team Description 11/27/2024 External Device Data STL ABSTRACTION Provider, Abstract 11/01/2024 External Device Data STL ABSTRACTION Provider, Abstract 10/31/2024 External Device Data STL ABSTRACTION Provider, Abstract 10/30/2024 External Device Data STL ABSTRACTION Provider, Abstract from Last 3 Months Social History Tobacco Use Types Packs/Day Years Used Date Smoking Tobacco: Never Assessed Comments Unknown Sex and Gender Information Value Date Recorded Sex Assigned at Not on file Legal Sex Female 2:39 PM CDT Gender Identity Not on file Sexual Orientation Not on file Plan of Treatment Health Maintenance Due Date Last Done Comments DTAP/TDAP/TD VACCINES (1 - Tdap) 1957 PNEUMOCOCCAL VACCINE 50+ YEARS (1 of 1 - PCV) 04/11/19 88 ZOSTER VACCINE (1 of 2) 1988 OSTEOPOROSIS SCREENING 2003 RSV VACCINE (60+ or ) (1 - 1-dose 75+ series) 2013 INFLUENZA VACCINE (#1) 2024 [facility]
--- OUTSIDE RECORDS SUMMARY | 2025-01-21 12:24 | XMS_ITS | Encounter Summary ---
Author Organization [facility] Address [address] [facility] [place] [address] Care Team Providers Care Antique Furniture Reproducer Name Role Phone Bill Guzman MD Primary Care Provider [phone] Filippo Berry MD Unavailable [phone] Beverley Reyes RN Unavailable [phone] Jael, Anita EDGE BONDER Unavailable [phone] Naomi Shanks Primary Care Provider [phone] Naomi Shanks DO Primary Care Provider [phone] Encounter Details Date Type Department Care Team (Late st Contact Info) Description 04/05/2013 SS Outpatient Visit EXTERNAL NON-SS DEPT Filippo Berry MD [facility] [address] Social History Tobacco Use Types Packs/Day Years Used Date Smoking Tobacco: Never Smokeless Tobacco: Never Alcohol Use Standard Drinks/Week Comments Yes 5 (1 standard drink = 0.6 oz pur e alcohol) occasionally Comments No Sex and Gender Information Value Date Recorded Sex Assigned at Not on file Legal Sex Female 5:02 AM HAND HEEL SEAT FITTER Gender Identity Not on file Sexual Orientation Not on file documented as of this encounter Plan of Treatment Not on file documented as of this encounter Visit Diagnoses Not on filedocumented in this encounter Care Teams Antique Furniture Reproducer Relationship Specialty Start Date End Date Bill Guzman MD PCP - General 09/13/12 08/17/23 Naomi Shanks [address] [place] [address] PCP - General General Medicine 08/18/23 02/01/24 Naomi Shanks DO [address] [place] [address] [place] [address] PCP - General Internal Medicine 02/02/24 Filippo Berry MD [address] [place], [place] [address] [place] [address] Emt Paramedic Cardiovascular Disease 04/06/17 Beverley Reyes, RN Crown Ironer Operator 04/06/17 Anita Elder EDGE BONDER [place] Double Cut Off Saw Operator 04/21/17 documented as of this encounter
--- OUTSIDE RECORDS SUMMARY | 2025-01-21 12:24 | XMS_ITS | Clinical Summary ---
Author Organization [facility] Address [facility] [place] [address] Care Team Providers Care Snapper On Name Role Phone Beverley Harden MD Primary Care Provider [phone] Allergies Active Allergy Reactions Criticality Noted Date Comments Propoxyphene Hives Medium 11/29/2007 Statins Myalgias,Other (see comment) 008 Medications CALCIUM OR Take 1 tablet by mouth daily. Active evolocumab (REPATHA SURECLICK) 140 MG/ML injection (PEN) INJECT 140 MG SUBCUTANEOUSLY EVERY 2 WEEKS 3 Active folic acid (FOLVITE) 400 MCG tablet Take 1 tablet (0.4 mg total) by mouth daily. Active levothyroxine (SYNTHROID) 100 MCG tablet Take 1 tablet (100 mcg total) by mouth daily. Active warfarin (COUMADIN) 4 MG tablet Take 5 mg by mouth daily. Active pregabalin (LYRICA) 150 MG capsule Take 1 capsule (150 mg total) by mouth 2 (two) times daily. Active carvedilol (COREG) 3.125 MG tablet Take 1 tablet (3.125 mg total) by mouth 2 (two) times daily. Active furosemide (LASIX) 40 MG tablet Take 1 tablet (40 mg total) by mouth daily. Active B dwtozij-J-zrpv c acid 0.8 mg (DIALYVITE/NEP HRO-NEHEMIAH) Tab tablet Take 1 tablet by mouth daily. Active oxybutynin XL (DITROPAN-XL) 10 MG 24 hr tablet Take 1 tablet (10 mg total) by mouth daily. Active Active Problems Problem Noted Date Diagnosed Date Postsurgical aortocoronary bypass status 017 NSTEMI (non-ST elevated myoc ardial infarction) (CMS/HCC [facility]) 04/07/2017 History of DVT (deep vein thrombosis) 04/03/2014 HTN (hypertension) 04/03/2014 Mitral regurgitation 04/03/2014 Mixed hyperlipidemia 04/03/2014 Overview (07/24/2024): Last Assessment & Plan: She is on a PCSK9 inhibitor secondary to statin intolerance. Last lipids reviewed in at reasonable control. [facility]arachnoid hemorrhage ([facility]) 2013 3-vessel coronary artery disease 04/01/2014 Overview (07/24/2024): Last Assessment & Plan: Hx CABG and multiple PCI. Will continue repatha, aspirin. On AC due to hx permanent Afib. LDL above goal per last note seen in 2019. Discussed adding Zetia with patient today. She would prefer to stay on her current regimen which I think is not unreasonable given her advanced age. Encouraged diet and exercise Arrhythmia 04/01/2014 Carotid disease, bilateral 04/01/2014 Malignant neoplasm of uterus ([facility]) 0 04/01/2014 Encounter for health-related screening 1 Overview (07/24/2024): Adult Abstraction Problem List Screening Dexa Scan (Bone Density): Result: January 2011 [facility]11 Result: 1996- normal Mammogram: Result: January 2011 normal CF Test: Result: never IMO update 01 08 2018 Atrial fibrillation ([facility]) 11/13/2009 Overview (07/24/2024): Last Assessment & Plan: Permanent afib, on AC w warfarin. Rate controlled on carvedilol. No changes Deep vein thrombosis ([facility]) 0 Abdominal pain, left upper quadrant 10/26/2009 Tachycardia 10/26/2009 Overview (07/24/2024): Fall 10/11/2009 Immunizations Immunization Administration Dates Next Due Arexvy Respiratory Syncytial Virus (RSV, adjuvanted) 0.5 mL, PF 09/12/2023 Fluzone High Dose (IIV, trivalent, 0.5mL) 2017,07/11/2017,07/17/2015 PFIZER COVID-19 BIVALENT (12 +) mRNA, LNP-S, PF, 30 MCG/0.3 ML DOSE 07/13/2022 Pneumococcal (Prevnar 20) 06/07/2023 Social History Tobacco Use Types Packs/Day Years Used Date Smoking Tobacco: Never Assessed Comments Unknown Sex and Gender Information Value Date Recorded Sex Assigned at Not on file Legal Sex Female 3:25 PM CDT Gender Identity Not on file Sexual Orientation Not on file Plan of Treatment Upcoming Encounters Date Type Department Care Team (Late st Contact Info) Description 03/21/2025 11:15 AM CDT Office Visit [facility], [facility] [address] [place], [place] [id number] Ant Saldana MD [facility]. [facility] [address] [place] [address] Health Maintenance Due Date Last Done Comments ASCVD LDL 1938 DTaP, Tdap and Td Vaccines (1 - Tdap) 1957 Zoster Vaccines (1 of 2) 1988 Annual Medicare Wellness Visit 2003 COVID-19 Vaccine ( season) 2024 09/12/2023, 07/13/2022, 09/29/2021, Additional history exists Pneumococcal Vaccine: 50+ Years Completed 06/07/2023 RSV Immunization or 60+ Years Completed 09/12/2023 Meningococcal B Vaccine Aged Out No l onger eligible based on patient's age to complete this topic Meningococcal Vaccine Aged Out No jimmy tyson eligible based on patient's age to complete this topic RSV Immunizations Under 20 Months Aged Out No longer eligible based on patient's age to complete this topic Insurance MEDICARE [facility] Care Teams Snapper On Relationship Specialty Start Date End Date Beverley Harden MD [address] [place] [phone] PCP - General FAMILY PRACTICE 07/04/24
--- OUTSIDE RECORDS SUMMARY | 2025-01-21 12:24 | XMS_ITS ---
Author Organization [facility] Address [address] [facility] [[email or web address] [address] [place], [place] [id number] Care Team Providers Care Kaiwhakahaere Name Role Phone Naomi Shanks Primary Care Provider Compa Rome Unavailable [phone] Migration, Provider Unavailable Unavailable REASON FOR VISIT Multum To Medispan Conversion Encounter Medications Medication SIG (Take, Route, Fr equency, Duration) Notes Start Date End Date Status Omeprazole 40 MG 1 cap(s) orally once a day for 90 days 02/23/2024 Active Encounters Encounter Location Date Provider Diagnosis [facility] [address] [facility] [facility] [address] [place], [place] [id number] 09/22/2024 Provider Migration Gastro-esophageal reflux disease with esophagitis, without bleeding K21.00 Assessments Encounter Date Diagnosis (ICD Code) Assessment Notes Treatment Notes Treatment Clinical Notes Section Notes 09/22/2024 Gastro-esophage al reflux disease with esophagitis, without bleeding (ICD-10 - K21.00) Plan Of Treatment Medication Medication Name Sig Start Date Stop Date Notes Omeprazole 40 MG 1 cap(s) orally once a day for 90 days Progress Notes * Tripp LOZAdomitilaDOB:1940 ( 84 yo F)Acc No.[id number]:09/22/2024 Patient: Chela UREÑA Provider: Niall Saucedo :1940 A ge:84 Y S ex:Female Date:09/22/2024 Address:[address] [place] [address] Pcp:Naomi Shanks Subjective: * Chief Complaints: * 1 . Multum To Medispan Conversion Encounter. * Medical History: Objective: * Vitals: * Physical Examination: Assessment: * Assessment: 1. G anselmo-esophageal reflux disease with esophagitis, without bleeding - K21.00 (Primary) Plan: * Treatment: * * Electronic signature of Prov ider Migration on 01/21/2025 at 12:24 PM CDT Sign off status: Pending * Provider: Niall gonzales Migration Date: 1 11/23/2023 Generated for Nohemi montelongo/Antonia/Jamar on: 0 01/21/2025 12:24 PM CDT
--- OUTSIDE RECORDS SUMMARY | 2025-01-21 12:24 | XMS_ITS ---
Author Organization [facility] Address [address] [facility] [address] [place], [place] [address] Care Team Providers Care Instrument Person Name Role Phone Naomi Shanks Primary Care Provider Compa Rome Unavailable [phone] REASON FOR VISIT 6 wk f/u throat/trouble swallowing //nt Encounters Encounter Location Date Provider Diagnosis [facility] [address] [place] [phone] 04/05/2024 Compa Locke Plan Of Treatment No Information Progress Notes * Chela LOZADOB:1940 ( 84 yo F)Acc No.[id number]:04/05/2024 Patient: Chela UREÑA Provider: aKrri Locke DO :1940 A ge:83 Y S ex:Female Date:04/05/2024 Address:[address] [place] [address] Pcp:Naomi Shanks Subjective: * Chief Complaints: * 1 . 6 wk f/u throat/trouble swallowing //nt. * Medical History: Objective: * Vitals: * Physical Examination: Assessment: Plan: * Treatment: * * Electronic signature of Devin Locke DO on 01/21/2025 at 12:23 PM CDT Sign off status: Pending * Provider: Karri Locke DO Date: 04/05/2024 Generated for Nohemi ng/Fakirsteng/eTransmitting on: 01/21/2025 12:23 PM CDT
--- OUTSIDE RECORDS SUMMARY | 2025-01-21 12:24 | XMS_ITS | Patient Health Record ---
Author Organization [facility] Address [facility] [address] [facility] [address] [place], [place] [id number] Care Team Providers Care Waterway Traffic Checker Name Role Phone RimmaNaomi andrews Primary Care Provider UnavailCompa Chavez Unavailable [phone] Migration, Provider Unavailable Unavailable Allergies No Known Allergies Reason For Referral No Information Medications Medication SIG (Take, Route, Fr equency, Duration) Notes Start Date End Date Status Omeprazole 40 MG 1 cap(s) orally once a day for 90 days 02/23/2024 Active Problems Problem Type SNOMED Code ICD Code Onset Dates Problem Status W/U Status Risk Notes Problem Dysphagia (25906590) Dysphagia, unspecified (R13.10) Active confirmed Problem Gastroesophageal reflux disease with esophagitis (disorder) (747744814) Gastro-esophag eal reflux disease with esophagitis, without bleeding (K21.00) Active confirmed Encounters Encounter Location Date Provider Diagnosis [facility] [place] [address] [facility] [address] [place], [place] [id number] 09/22/2024 Provider Migration Gastro-esophageal reflux disease with esophagitis, without bleeding K21.00 [facility] [address] [place] [phone] 02/23/2024 Compa Locke Gastro-esophageal reflux disease with esophagitis, without bleeding K21.00 ; Globus Sensation - Other specified s/s involving the circulatory and respiratory systems R09.89 and Dysphagia, unspecified R13.10 Assessments Encounter Date Diagnosis (ICD Code) Assessment Notes Treatment Notes Treatment Clinical Notes Section Notes 09/22/2024 Gastro-esophagea l reflux disease with esophagitis, without bleeding (ICD-10 - K21.00) 02/23/2024 Globus Sensation - Other specified s/s involving the circulatory and respiratory systems (ICD-10 - R09.89) 02/23/2024 Gastro-esophagea l reflux disease with esophagitis, without bleeding (ICD-10 - K21.00) start PPI, decrease amount of caffeine in diet, avoid citrus fruits diet & exercise reviewed with patient 02/23/2024 Dysphagia, unspecified (ICD-10 - R13.10) modified barium swallow was normal Plan Of Treatment No Information Insurance Providers Payer Name Payer Address Payer Phone Subscriber Number Group Number Insured Name Patient Relationship to Insured Coverage Start Date Coverage End Date [employer] [address] [place] [address] [id number] Chela Dean Self - patient is the insured Medical (General) History Medical History History ICD Code Vision changes Throat/Neck problems Hypertension Heart Attack Uterine Cancer Surgical History Surgery Date(Month/Year) Open Heart SX Hysterectomy
--- OUTSIDE RECORDS SUMMARY | 2025-01-21 12:24 | XMS_ITS ---
Author Organization [facility] Address [address] [facility] [address] [place], [place] [id number] Care Team Providers Care [facility] Attendant Name Role Phone Naomi Shanks Primary Care Provider Compa Rome Unavailable [phone] Allergies No Known Allergies REASON FOR VISIT review barium swallow //nt r/s//aw Medications Medication SIG (Take, Route, Fr equency, Duration) Notes Start Date End Date Status OMEPRAZOLE 40 mg 1 cap(s) orally once a day for 90 days 02/23/2024 Active Encounters Encounter Location Date Provider Diagnosis [facility] [address] [id number] 02/23/2024 Compa Locke Gastro-esophageal reflux disease with esophagitis, without bleeding K21.00 ; Globus Sensation - Other specified s/s involving the circulatory and respiratory systems R09.89 and Dysphagia, unspecified R13.10 Assessments Encounter Date Diagnosis (ICD Code) Assessment Notes Treatment Notes Treatment Clinical Notes Section Notes 02/23/2024 Gastro-esophagea l reflux disease with esophagitis, without bleeding (ICD-10 - K21.00) start PPI, decrease amount of caffeine in diet, avoid citrus fruits diet & exercise reviewed with patient 02/23/2024 Globus Sensation - Other specified s/s involving the circulatory and respiratory systems (ICD-10 - R09.89) 02/23/2024 Dysphagia, unspecified (ICD-10 - R13.10) modified barium swallow was normal Plan Of Treatment Medication Medication Name Sig Start Date Stop Date Notes OMEPRAZOLE 40 mg 1 cap(s) orally once a day for 90 days Treatment Notes Assessment Notes Gastro-esophageal reflux dis ease with esophagitis, without bleeding start PPI, decrease amount of caffeine i n diet, avoid citrus fruits diet & exercise reviewed with patient Dysphagia, unspecified modified barium s wallow was normal Next Appt Details Follow Up: 6 Weeks, Reason: Procedure Notes * Category Sub-Category Detail Notes NPL PREOPERATIVE DX Globus sensation POSTOPERATIVE DX same SURGEON Dr. Compa Locke ANESTHESIA Local, spray form of 0.5% Santosh-Synephrine on a 1:1 ratio with 4% topical lidocaine COMPLICATIONS None PROCEDURE Mirror exam of the larynx was attempted, but incomplete, The flexible [place]ida nasopharyngoscopy/laryngoscopy was carried out after the patient gave informed consent. The nose was examined on anterior rhinoscopy with the nasal speculum. The nose was decongested and topically anesthetized with 0.5% Santosh?Synephrine in a 1:1 ratio with 4% topical Lidocaine. After adequate time was allowed for the numbing and decongesting of the membranes of the nasal passage, the flexible nasopharyngoscope/laryngoscope was insinuated along the floor of the nose. During the passing of the scope, the septum and turbinates were examined. The nasopharynx and the eustachian tube orifice were noted. The Machida Scope was then angled and passed behind the nasopharynx into the oropharynx. The uvula and posterior pharyngeal wall were noted. Base of the tongue and vallecula were noted. Epiglottis, laryngeal, and lingual surface were examined, as well as the area of the epiglottic folds. The false cords, true cords were noted. Mobility of the vocal cords was noted. The arytenoids were found and appreciated. The patient was encouraged to swallow and phonate so we could do a physiological and anatomical examination of the endolarynx., After the examination, the Machida Scope was then gently removed through the nasal passage. The patient tolerated the procedure well and was discharged from the office. Progress Notes * Chela LOZADOB:1940 ( 83 yo F)Acc No.[id number]:02/23/2024 Progress Notes Patient: Chela UREÑA Provider: Karri Locke DO :1940 A ge:83 Y S ex:Female Date:02/23/2024 Address:[address] [place] [address] Pcp:Naomi Shansk Subjective: * Chief Complaints: * 1 . Review barium swallow //nt r/s//aw. * HPI: T hroat/General: 01/12/24-- Pt states that she had open heart surgery 7 years ago. Since then has had a globus sensation in her throat and says it has gradually gotten worse. Says it feels like a shelf in her neck. Denies pain or trouble swallowing. 02/23/24-- Pt is here to review testing and discuss plan of care. Says that she is still having issues and it feels like something is sitting on the very back of her tongue. * ROS: E NT: weight change? y es. n o f ever?. n o c hills?. n o f atigue?. h earing loss? y es. n o s ore throat?. n o e pistaxis?. c hange in voice? y es. r inging in ears? y es. n o d izziness?.?no a llergies?. n o c hest pain?. i rregular heart rhythm? y es. t aking coumadin/blood thinners? y es. n o n ausea?. n o v omiting?. n o d iarrhea?. n o d ifficulty swallowing?. n o h eartburn?. n o d iabetes?. n o?thyroid disease?. n o c old intolerance?. n o h eat intolerance?. n o h eadache?. m bridgette loss? y es. d ifficulty walking? y es. n o b lurring of vision?. n o c ough?. n o w heezing?. s hortness of breath? y es. r unny nose? y es. n o i tchy eyes?. n o s tuffy nose?. e asy bruising? y es. no a nemia?. n o s kin rashes?. n o s kin lesions?. r heumatoid arthritis? y es. n o l upus?. * Medical History: V ision changes, Throat/Neck problems, Hypertension, Heart Attack, Uterine Cancer. * Surgical History: O pen Heart SX , Hysterectomy . * Hospitalization/Major Diagno stic Procedure: D enies Past Hospitalization. * Family History: M other: diagnosed with Heart Disease. * Social History: S moking: no . S mokeless Tobacco: no. Alcohol: yes s ocially. R ecreational drug use: no. * Medications: N one * Allergies: N .K.D.A. Objective: * Vitals: * Examination: C onstitutional: General A lert & Oriented x3, no acute distress, appears stated age. N utritional Status w ell nourished. H ead: N C/AT, no alopecia. I ntegumentary: Face n o lesions. N chad n o lesions. O ther locations n o lesions, no rashes. E ar: External ear: p fanta without erythema. E xternal Auditory Canal c lear bilaterally. M iddle ear: r ight TM intact, left TM intact, no effusion.?Tube status: n egative for PE tubes. T M perforation: n egative for perforation. Foreign body: n egative for foreign body. T gram: n ot performed. A udiogram:?not done. R homberg n ot done. N ose: Nasal dorsum: m idline. S eptum: m idline, equal airway, no hematoma, no abscess. I nferior turbinates: n ormal pink. M iddle turbinates:?normal. S ecretions: n one. F oreign body: n one seen. O ral/Oropharynx: Normal-Oral/Oropharynx: n o bifid uvula, mucous membranes moist. T eeth: g ood dentition. F OM: n o lesions. T ongue: n ormal without lesion. P alate: n o lesions. O ropharynx: n o erythema or exudate. T onsils?2+. N chad: Normal Neck: s upple, no masses. T rachea: m idline. T hyroid: n o thyromegaly, non-tender. T MJ: n o crepitance, good joint motion, no popping or clicking. S ubmandibular Bolton n o masses palpated. L ymphatic: Lymphatic Exam N o neck lymphadenopathy. ? E yes: Eye exam P ERRLA, vision intact bilaterally, EOMI, no ectropion, no scleral hemorrhage, no exophthalmos, No nystagmus. C ardiovascular: Cardiovascular Exam P ulses are symmetric, no JVD, no peripheral edema noted. H eart n ot auscultated. R espiratory: Respiratory Exam B reathing is non-labored, no audible wheezing, no stridor, no use of accessory muscles. L ungs n ot auscultated. ? N eurological: Cranial Nerves: I I-XII grossly intact, no focal deficits noted. G ait: n ormal. O rientation A lert & oriented x3. Assessment: * Assessment: 1. G anselmo-esophageal reflux disease with esophagitis, without bleeding - K21.00 (Primary) 2 . G lobus Sensation - Other specified s/s involving the circulatory and respiratory systems - R09.89 3 . D ysphagia, unspecified - R13.10 Plan: * Treatment: 2. D ysphagia, unspecified Notes: modified barium swallow was normal * Procedures: N PL: PREOPERATIVE DX G lobus sensation. P OSTOPERATIVE DX?same. S URGEON D michelle Locke. A NESTHESIA L ocal, spray form of 0.5% Santosh-Synephrine on a 1:1 ratio with 4% topical lidocaine. C OMPLICATIONS N one. P ROCEDURE M irror exam of the larynx was attempted, but incomplete, The flexible [place] nasopharyngoscopy/laryngoscopy was carried out after the patient gave informed consent. The nose was examined on anterior rhinoscopy with the nasal speculum. The nose was decongested and topically anesthetized with 0.5% Santosh?Synephrine in a 1:1 ratio with 4% topical Lidocaine. After adequate time was allowed for the numbing and decongesting of the membranes of the nasal passage, the flexible nasopharyngoscope/laryngoscope was insinuated along the floor of the nose. During the passing of the scope, the septum and turbinates were examined. The nasopharynx and the eustachian tube orifice were noted.The [place] Scope was then angled and passed behind the nasopharynx into the oropharynx. The uvula and posterior pharyngeal wall were noted. Base of the tongue and vallecula were noted. Epiglottis, laryngeal, and lingual surface were examined, as well as the area of the epiglottic folds. The false cords, true cords were noted. Mobility of the vocal cords was noted. The arytenoids were found and appreciated. The patient was encouraged to swallow and phonate so we could do a physiological and anatomical examination of the endolarynx., After the examination, the Mach[place] Scope was then gently removed through the nasal passage. The patient tolerated the procedure well and was discharged from the office.. * Procedure Codes: 3 1575 LARYNGOSCOPY/FLEX/RIGID * Follow Up: 6 Weeks * Images: * Sign off status: Completed true * Provider: Karri Locke DO Date: 02/23/2024 Generated for Noehmi montelongo/Antonia/Jamar on: 0 01/21/2025 12:23 PM CDT History and Physical Notes * HPI (History of Present Illness) Category Sub-Category Detail Notes Category Not es Throat/General 02/23/24-- Pt is here to review testing and discuss plan of care. Says that she is still having issues and it feels like something is sitting on the very back of her tongue. Examination Category Sub-Category Detail Notes Category Not es Ear External ear: pinna without erythema Middle ear: right TM intact, lef t TM intact, no effusion Tube status: negative for PE tube s TM perforation: negative for perfora tion Foreign body: negative for foreign body Tgram: not performed Audiogram: not done Rhomberg not done External Auditory Canal clear bilaterall y Nose Nasal dorsum: midline Septum: midline, equal airwa y, no hematoma, no abscess Inferior turbinates: normal pink Middle turbinates: normal Secretions: none Foreign body: none seen Oral/Oropharynx Normal-Oral/Oropharynx: no bifid uvula , mucous membranes moist Teeth: good dentition FOM: no lesions Tongue: normal without lesio n Palate: no lesions Oropharynx: no erythema or exuda te Tonsils 2+ Neck Normal Neck: supple, no masses Trachea: midline Thyroid: no thyromegaly, non- tender TMJ: no crepitance, good joint motion, no popping or clicking Submandibular Bolton no masses palpate d Neurological Cranial Nerves: II-XII grossly intact, no focal deficits noted Gait: normal Orientation Alert & oriented x3 Head NC/AT, no alopecia Eyes Eye exam PERRLA, vision i ntact bilaterally, EOMI, no ectropion, no scleral hemorrhage, no exophthalmos, No nystagmus Cardiovascular Cardiovascular Exam Pulses are s ymmetric, no JVD, no peripheral edema noted Heart not auscultated Respiratory Respiratory Exam Breathing is no n-labored, no audible wheezing, no stridor, no use of accessory muscles Lungs not auscultated Integumentary Face no lesions Neck no lesions Other locations no lesions, no rashe s Constitutional General Alert & Oriented x3, no acute distress, appears stated age Nutritional Status well nourished Lymphatic Lymphatic Exam No neck lymphadenopathy
== END 2025-01-21 10:51 | disposition home or self-care (01) ==
PROVIDERS: PCP Internal Medicine; Visit Provider Internal Medicine
DX: I65.23 Occlusion and stenosis of bilateral carotid arteries (principal); I49.9 Cardiac arrhythmia, unspecified
CPT/HCPCS: 93880